=== PATIENT | female | born 1950 | race African-American/Black ===

== ENCOUNTER 2022-09-16 22:30 | Emergency (ER) | payer OTHER ==
[~2022-09-16] VITALS: Ht 165.1 cm; Wt 45.0 kg
[2022-09-16] MEDS ORDERED: cefTRIAXone 1GM/50ML D5W 50 ML IV ONE (23:45)
[2022-09-16] MEDS ORDERED: methylPREDNISolone SOD SUCC 125 MG/2 ML VL IV ONE (23:45)
[2022-09-16 23:52] LABS: Basophils # (auto) 0 10 ^3/uL (0-0.2); Basophils % (auto) 0.2 % (0.0-2.0); Eosinophils # (auto) 0.1 10 ^3/uL (0-0.8); Eosinophils % (auto) 1.4 % (0.0-7.0); Hematocrit 25.2 % (36.0-46.0); Hemoglobin 8.5 g/dL (12.2-16.2); Lymphocytes # (auto) 0.8 10 ^3/uL (0.4-5.4); Lymphocytes % (auto) 9.9 % (10.0-50.0); Mean Corpuscular Hemoglobin 30.4 pg (28.0-32.0); Mean Corpuscular Hgb Conc. 33.7 g/dL (32.0-36.0); Mean Corpuscular Volume 90.3 fL (80.0-100.0); Monocytes # (auto) 0.2 10 ^3/uL (0-1.3); Monocytes % (auto) 2.3 % (0.0-12.0); Neutrophils # (auto) 6.6 10 ^3/uL (1.6-8.6); Neutrophils % (auto) 86.2 % (37.0-80.0); Red Blood Cells 2.79 10^6/uL (4.0-5.20); Red Cell Distribution Width 14.9 % (11.8-14.3); White Blood Cell 7.6 10^3/uL (4.4-10.8)
[2022-09-17 00:11] LABS: BUN/Creatinine Ratio 22.3; Potassium 3.6 mmol/L (3.5-5.1)
[2022-09-17 00:12] LABS: Albumin 2.6 g/dL (3.4-5.0); Magnesium 2.4 mg/dL (1.6-2.6)
[2022-09-17 00:17] LABS: INR 1.18 (0.9-1.15); Partial Thromboplastin Time 28.3 sec (24.6-33.4)
[2022-09-17 00:22] LABS: Bilirubin, Total 0.8 mg/dL (0.2-1.0); Total Protein 8.3 g/dL (6.4-8.2)
[2022-09-17 03:25] LABS: Urine Amorphous Crystal FEW /hpf (None Seen); Urine Bacteria NONE SEEN /hpf (None Seen); Urine Hyaline Cast MOD /lpf (0 - 2); Urine Mucus MANY (None Seen); Urine WBC 1 /hpf (0 - 5)
[2022-09-17 03:29] LABS: Urine Blood Normal /uL (Negative); Urine Specific Gravity 1.025 (1.001-1.035)
[2022-09-17] MEDS ORDERED: SODIUM CHLORIDE 0.9% 500 ML IV ONE (08:15)
[2022-09-17 15:29] VITALS: BP 122/47
== END 2022-09-17 15:57 | disposition short-term general hospital (02) ==
LOC: EDBD 22:30 → ER 22:33
DX: T14.8XXA Other injury of unspecified body region, initial encounter (principal); R41.82 Altered mental status, unspecified; G93.41 Metabolic encephalopathy; F03.90 Unspecified dementia, unspecified severity, without behavioral disturbance, psychotic disturbance, mood disturbance, and anxiety; J18.9 Pneumonia, unspecified organism; K80.80 Other cholelithiasis without obstruction; J90 Pleural effusion, not elsewhere classified; I10 Essential (primary) hypertension; Z20.822 Contact with and (suspected) exposure to COVID-19; W19.XXXA Unspecified fall, initial encounter; Y93.89 Activity, other specified; Y92.89 Other specified places as the place of occurrence of the external cause; Y99.8 Other external cause status
CPT/HCPCS: 36415; 70450; 71045; 71250; 72125; 73501; 74176; 80053; 81001; 83735; 83880; 84484; 85025; 85610; 85730; 87426; 93005; 96361; 96365; 96375; 99291; C9803; J0696; J2930; J7040; U0003

== ENCOUNTER 2023-07-16 16:53 | Inpatient (IN) | payer OTHER ==
[~2023-07-16] VITALS: Ht 162.6 cm; Wt 47.6 kg
[2023-07-16] VITALS (7 sets, daily range): BP systolic 83–115; BP diastolic 48–69; PULSE 125–161; RESP 16–32; O2SAT 93–100
[2023-07-16] MEDS: InsuLIN REG 1unit/0.01ml Soln (100units/ml) SC SCH
[2023-07-16] MEDS ORDERED: PROPOFOL 100 ML IV ONE (16:58)
[2023-07-16] MEDS ORDERED: NOREPINEPHRINE 8 MG/250ML KIT 250 ML IV ONE (17:04)
[2023-07-16] MEDS: NOREPINEPHRINE 8 MG/250ML KIT 250 ML IV SCH (17:15)
[2023-07-16] MEDS ORDERED: PROPOFOL 100 ML IV SCH (17:15)
[2023-07-16] MEDS ORDERED: NOREPINEPHRINE 8 MG/250ML KIT 250 ML IV SCH (17:15)
[2023-07-16] MEDS ORDERED: AZITHROMYCIN 500MG/ 250ML 250 ML IV ONE (17:15)
[2023-07-16] MEDS ORDERED: cefTRIAXone 1GM/50ML D5W 50 ML IV ONE (17:15)
[2023-07-16] MEDS ORDERED: dilTIAZem 25 MG/5 ML VIAL IV ONE ×3 (17:30→21:15)
[2023-07-16 18:09] LABS: Hemoglobin 9.8 g/dL (12.2-16.2)
[2023-07-16 18:12] LABS: Hematocrit 29.6 % (36.0-46.0); Mean Corpuscular Hemoglobin 31.9 pg (28.0-32.0); Mean Corpuscular Hgb Conc. 33.1 g/dL (32.0-36.0); Mean Corpuscular Volume 96.5 fL (80.0-100.0); Red Blood Cells 3.07 10^6/uL (4.0-5.20); Red Cell Distribution Width 17.4 % (11.8-14.3)
[2023-07-16 18:16] LABS: White Blood Cell 1.8 10^3/uL (4.4-10.8)
[2023-07-16 18:17] LABS: Basophils % (manual) 0 (0.0-2.0); Blast Cells 0; Metamyelocytes % 0; Myelocytes % 0; Promyelocytes % 0; Reactive Lymphocytes 0
[2023-07-16 18:24] LABS: Alanine Aminotransferase 24 U/L (7-40); Albumin 3.2 g/dL (3.2-4.8); Alkaline Phosphatase 136 U/L (46-116); Anion Gap 13.6 (5-15); Aspartate Aminotransferase 18 U/L (13-40); BUN/Creatinine Ratio 33.5 (10.0-20.0); Blood Urea Nitrogen 55 mg/dL (9-23); Calcium 9.7 mg/dL (8.5-10.1); Carbon Dioxide 21.4 mmol/L (20-30); Chloride 115 mmol/L (98-107); Glucose 205 mg/dL (74-106); Potassium 3.8 mmol/L (3.5-5.1); Sodium 150 mmol/L (136-145)
[2023-07-16 18:25] LABS: Bilirubin, Total 0.6 mg/dL (0.2-1.0); Total Protein 7.6 g/dL (5.7-8.2)
[2023-07-16 18:29] LABS: Band Neutrophils % (manual) 23; Eosinophils % (manual) 1 (0-7); Lymphocytes % (manual) 55 (10.0-50.0); Monocytes % (manual) 6 (0-12); Platelet Estimate Adequate
[2023-07-16] MEDS ORDERED: metroNIDAZOLE 500MG/100ML 100 ML IV ONE (18:30)
[2023-07-16] MEDS ORDERED: SODIUM CHLORIDE 0.9% 1,000 ML IV ONE (19:15)
[2023-07-16] MEDS: SODIUM CHLORIDE 0.9% 1,000 ML IV ONE ×2 (19:30→20:04)
[2023-07-16 19:46] LABS: Urine Bacteria NONE SEEN /hpf (None Seen); Urine Blood Negative /uL (Negative); Urine Clarity HAZY (Clear); Urine Color Yellow (Yellow); Urine Mucus FEW (None Seen); Urine Protein, UAD 2+ (Negative); Urine Specific Gravity 1.027 (1.001-1.035); Urine Urobilinogen Normal (Negative); Urine WBC 1 /hpf (0 - 5)
[2023-07-16 20:21] LABS: Base Excess -2.9 mmol/L (-2.0-2.0)
[2023-07-16] MEDS ORDERED: MORPHINE SULFATE INJ 2 MG/ml SYRG IV PRN (20:45)
[2023-07-16] MEDS ORDERED: NITROGLYCERIN 0.4 MG SL TAB SL PRN (20:45)
[2023-07-16] MEDS ORDERED: SODIUM CHLORIDE 0.9% 1,000 ML IV SCH (20:45)
[2023-07-16] MEDS: MIDAZOLAM DRIP 50 mg/50mL 50 ML IV SCH (21:15)
[2023-07-16] MEDS ORDERED: DONE5TAB80 PO (21:40)
[2023-07-16] MEDS ORDERED: SERT25TA28 PO (21:40)
[2023-07-16] MEDS ORDERED: AMLO1TAB22 PO (21:40)
[2023-07-16] MEDS ORDERED: MIRT1TAB38 PO (21:40)
[2023-07-16] MEDS ORDERED: DEXTROSE (50%) 50ML SYRG IV PRN (21:45)
[2023-07-16] MEDS ORDERED: SOD CHL 0.45% 1,000 ML IV SCH (21:45)
[2023-07-16] MEDS ORDERED: EPINEPHrine HCL 250 ML IV ONE (21:47)
[2023-07-16] MEDS: EPINEPHrine HCL 250 ML IV SCH (21:47)
[2023-07-16] MEDS ORDERED: metroNIDAZOLE 500MG/100ML 100 ML IV SCH (22:00)
[2023-07-16] MEDS ORDERED: SODIUM BICARBONATE 8.4 % INJ 50ML VIAL IV ONE (22:15)
[2023-07-16] MEDS: VASOPRESSIN 20 UNITS in SODIUM CHL 0.9% 99 ML IV SCH (22:47)
[2023-07-16] MEDS ORDERED: ENOXAPARIN SOD 60 MG/0.6 ML SYRINGE SC SCH (23:00)
[2023-07-17] VITALS (9 sets, daily range): BP systolic 61–123; BP diastolic 29–50; PULSE 61–125; RESP 21–31; TEMP 98–98.2; O2SAT 92–99
[2023-07-17] MEDS: ACCU-CHEK COMFORT CURVE STRIP VI SCH ×2 (00:39→07:08)
[2023-07-17] MEDS: MIDAZOLAM DRIP 50 mg/50mL 50 ML IV SCH ×2 (01:07→08:48)
[2023-07-17] MEDS: EPINEPHrine HCL 250 ML IV SCH (01:15)
[2023-07-17] MEDS: NOREPINEPHRINE 8 MG/250ML KIT 250 ML IV SCH (01:23)
[2023-07-17] MEDS ORDERED: PHENYLEPHRINE IV 250 ML IV ONE (02:26)
[2023-07-17] MEDS: VASOPRESSIN 20 UNITS in SODIUM CHL 0.9% 99 ML IV SCH (02:58)
[2023-07-17] MEDS: PHENYLEPHRINE IV 250 ML IV SCH ×2 (03:41→07:45)
[2023-07-17] MEDS ORDERED: ALBUMIN 25% 100 ML IV ONE ×2 (04:18→04:30)
[2023-07-17] MEDS ORDERED: methylPREDNISolone SOD SUCC 40 MG/ML VL IV ONE ×2 (04:30→05:15)
[2023-07-17] MEDS ORDERED: SODIUM CHLORIDE 0.9% 1,000 ML IV ONE (04:30)
[2023-07-17] MEDS ORDERED: DOBUTamine 1000MCG/ML 250 ML IV ONE (05:18)
[2023-07-17] MEDS: DOBUTamine 1000MCG/ML 250 ML IV SCH ×2 (05:21→08:50)
[2023-07-17 05:41] LABS: Alanine Aminotransferase 16 U/L (7-40); Albumin 2.7 g/dL (3.2-4.8); Alkaline Phosphatase 81 U/L (46-116); Anion Gap 19.1 (5-15); Aspartate Aminotransferase 24 U/L (13-40); BUN/Creatinine Ratio 20.1 (10.0-20.0); Bilirubin, Total 0.3 mg/dL (0.2-1.0); Blood Urea Nitrogen 47 mg/dL (9-23); Calcium 9.3 mg/dL (8.7-10.4); Carbon Dioxide 13.9 mmol/L (20-30); Chloride 115 mmol/L (98-107); Glucose 201 mg/dL (74-106); Lactic Acid w/Reflex 13.4 mmol/L (0.4-2.0); Potassium 3.2 mmol/L (3.5-5.1); Sodium 148 mmol/L (136-145); Total Protein 4.8 g/dL (5.7-8.2)
[2023-07-17] MEDS ORDERED: metroNIDAZOLE 500MG/100ML 100 ML IV SCH (06:00)
[2023-07-17 06:54] LABS: Base Excess -13.3 mmol/L (-2.0-2.0)
[2023-07-17] MEDS: InsuLIN REG 1unit/0.01ml Soln (100units/ml) SC SCH (07:11)
[2023-07-17] MEDS ORDERED: SODIUM BICARBONATE 8.4 % INJ 50ML VIAL IV ONE (07:30)
[2023-07-17] MEDS ORDERED: DOPamine 1600MCG/ML D5W 250 ML IV SCH (07:45)
[2023-07-17] MEDS ORDERED: DOPamine 1600MCG/ML D5W 250 ML IV ONE (07:53)
[2023-07-17] MEDS ORDERED: NOREPINEPHRINE BITARTRATE 32 MG in SODIUM CHL 0.9% 218 ML IV SCH (08:00)
[2023-07-17] MEDS ORDERED: SOD CHL 0.45% 1,000 ML IV SCH (08:00)
[2023-07-17] MEDS ORDERED: EPINEPHrine HCL INJECTION 16 MG in D5W 5% 234 ML IV SCH (08:00)
[2023-07-17] MEDS ORDERED: POTASSIUM CHL 20MEQ/100ML 100 ML IV SCH (08:00)
[2023-07-17] MEDS ORDERED: SOD CHL 0.45% 1,000 ML IV ONE (08:00)
[2023-07-17] MEDS ORDERED: PHENYLEPHRINE INJ 80 MG in SODIUM CHL 0.9% 242 ML IV SCH (08:00)
[2023-07-17] MEDS ORDERED: cefTRIAXone 1GM/50ML D5W 50 ML IV SCH (09:00)
[2023-07-17 09:25] LABS: Hematocrit 20.2 % (36.0-46.0); Mean Corpuscular Hemoglobin 31.9 pg (28.0-32.0); Mean Corpuscular Hgb Conc. 30.1 g/dL (32.0-36.0); Mean Corpuscular Volume 105.8 fL (80.0-100.0); Red Cell Distribution Width 17.7 % (11.8-14.3); White Blood Cell 3.8 10^3/uL (4.4-10.8)
[2023-07-17 09:30] LABS: Hemoglobin 6.1 g/dL (12.2-16.2)
[2023-07-17] MEDS ORDERED: SODIUM CHLORIDE 0.9% 2,000 ML IV ONE (09:30)
[2023-07-17 09:31] LABS: Basophils % (manual) 0 (0.0-2.0); Blast Cells 0; Myelocytes % 0; Promyelocytes % 0; Reactive Lymphocytes 0
[2023-07-17] MEDS ORDERED: AZITHROMYCIN 500MG/ 250ML 250 ML IV SCH (10:00)
[2023-07-17] MEDS ORDERED: HEPARIN SODIUM (PORCINE) 5000 UNITS/ML 1ML VIAL SC SCH (10:00)
[2023-07-17] MEDS ORDERED: ENOXAPARIN SOD 40 MG/0.4 ML SYRINGE SC SCH (10:00)
[2023-07-17] MEDS ORDERED: PANTOPRAZOLE 40 MG/10 ML VIAL INJ IV SCH (11:00)
[2023-07-17 11:44] LABS: Band Neutrophils % (manual) 22; Eosinophils % (manual) 1 (0-7); Lymphocytes % (manual) 11 (10.0-50.0); Metamyelocytes % 4; Monocytes % (manual) 1 (0-12)
[2023-07-17 11:45] LABS: Macrocytosis Moderate; Platelet Estimate Adequate
== END 2023-07-17 10:25 | DRG 871 ==
LOC: ER 16:53 → EDBD 16:53 → TELE 20:46
PROVIDERS: ADMIT Nurse Practitioner Family; ATTEND Internal Medicine
PROC: 5A1935Z Respiratory Ventilation, Less than 24 Consecutive Hours (ICD-10-PCS; principal; 2023-07-16)
PROC: 0BH17EZ Insertion of Endotracheal Airway into Trachea, Via Natural or Artificial Opening (ICD-10-PCS; 2023-07-16)
PROC: 06HY33Z Insertion of Infusion Device into Lower Vein, Percutaneous Approach (ICD-10-PCS; 2023-07-16)
DX: A41.9 Sepsis, unspecified organism (principal); I21.A1 Myocardial infarction type 2; J18.9 Pneumonia, unspecified organism; R65.21 Severe sepsis with septic shock; J96.01 Acute respiratory failure with hypoxia; N17.9 Acute kidney failure, unspecified; Z68.1 Body mass index [BMI] 19.9 or less, adult; R00.0 Tachycardia, unspecified; E66.9 Obesity, unspecified; D64.9 Anemia, unspecified; F03.90 Unspecified dementia, unspecified severity, without behavioral disturbance, psychotic disturbance, mood disturbance, and anxiety; I10 Essential (primary) hypertension; I46.9 Cardiac arrest, cause unspecified; Z88.5 Allergy status to narcotic agent
CPT/HCPCS: 36415; 36600; 71045; 80053; 81001; 82805; 83036; 83605; 83735; 83880; 84443; 84484; 85007; 85027; 85379; 86850; 86900; 86901; 86920; 87040; 87070; 87077; 87186; 87205; 93005; 93970; 94002; 94003; 96365; 96375; 99291; G0378; J0171; J0696; J1815; J2250; J2704; J3480; J3490; J7060; P9047